=== PATIENT | male | born 2000 | race Caucasian/White ===

== ENCOUNTER 2024-12-14 16:29 | Emergency (ER) | payer OTHER ==
[2024-12-14] MEDS ORDERED: Cyclobenzaprine 10 MG TAB ONE (16:46)
[2024-12-14] MEDS ORDERED: Ibuprofen 800 MG TAB ONE (16:46)
== END 2024-12-14 16:55 | disposition home or self-care (01) ==
LOC: NAV ERS 16:29
DX: S39.011A Strain of muscle, fascia and tendon of abdomen, initial encounter (principal); X50.0XXA Overexertion from strenuous movement or load, initial encounter; Y93.89 Activity, other specified